=== PATIENT | female | born 1990 | race Caucasian/White ===

== ENCOUNTER 2018-10-21 05:48 | Emergency (ER) | payer OTHER ==
[2018-10-21 05:56] VITALS: BP 121/75; PULSE 71; TEMP 97.7; BMI 35.0
--- NOTE | 2018-10-21 06:03 | PDOC ---
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 Patient states after she was medicated the patient with insulinshe secured the needle on the safety piece. Patient states when she disposed the needle, she stuck her finger. Patient squeezed her finger to express blood immediately and washed it with soap and water. Patient denies any other complaints. Patient's last tetanus: 2017. Patient was offered prophylactic medication which she deferred at this time. Patient states she will do some research prior to making a decision. Blood work was taken in the emergency department. Patient will try either get consent to have blood drawn on her patient. Past History - Past Medical History Allergies/Adverse Reactions: Allergies Allergy/AdvReac Type Severity Reaction Status Date / Time No Known Allergies Allergy Verified 10/21/18 05:55 Home Medications: Ambulatory Orders NK [No Known Home Medication] 10/21/18 - Suicide/Smoking/Psychosocial Hx Smoking History: Never smoked Have you smoked in the past 12 months: No Information on smoking cessation initiated: No Hx Alcohol Use: No Drug/Substance Use Hx: No Review of Systems - Review of Systems Able to Perform ROS?: Yes Comments:: 10/21/18 06:18 CONSTITUTIONAL: Absent: fever, chills, diaphoresis, generalized weakness, malaise, loss of appetite MUSCULOSKELETAL: Absent: myalgia, arthralgia, joint swelling SKIN: Absent: rash, itching, pallor Is the patient limited Austrian proficient: No *Physical Exam - Vital Signs Last Vital Signs Temp Pulse Resp BP Pulse Ox 97.7 F 71 18 121/75 98 10/21/18 05:48 10/21/18 05:48 10/21/18 05:48 10/21/18 05:48 10/21/18 05:48 - Physical Exam Comments: 10/21/18 06:19 GENERAL: Well developed, well nourished. Awake and alert. No acute distress. MUSCULOSKELETAL Normal range of motion at all joints. No bony deformities or tenderness. No CVA tenderness. EXTREMITIES: No cyanosis. No clubbing. No edema. No calf tenderness. SKIN: Warm and dry. Normal capillary refill. No rashes. No jaundice. NEUROLOGICAL: Alert, awake, appropriate. Cranial nerves 2-12 intact. No deficits to light touch and temperature in face, upper extremities and lower extremities. No motor deficits in the in face, upper extremities and lower extremities. Normoreflexic in the upper and lower extremities. Normal speech. Toes are down- going bilaterally. Gait is normal without ataxia. PSYCHIATRIC: Cooperative. Good eye contact. Appropriate mood and affect. Progress Note - Progress Note Progress Note: Patient refuses to take any prophylactic medication. Patient wishes to do her research *DC/Admit/Observation/Transfer Diagnosis at time of Disposition: Needle stick injury of finger Qualifiers: Encounter type: initial encounter Qualified Code(s): S61.239A - Puncture wound without foreign body of unspecified finger without damage to nail, initial encounter; W27.3XXA - Contact with needle (sewing), initial encounter - Discharge Dispostion Disposition: HOME Condition at time of disposition: Fair Decision to Admit order: No - Referrals - Patient Instructions Printed Discharge Instructions: How to Handle Body Fluid Exposure -- Healthcare Worker Additional Instructions: You refused to take any prophylactic medication at this time . It is important that you follow-up with your primary care physician Return to the ER for any concerns - Post Discharge Activity Forms/Work/School Notes: Back to Work
--- NOTE | 2018-10-21 06:13 | PDOC ---
*Physical Exam - Vital Signs Last Vital Signs Temp Pulse Resp BP Pulse Ox 97.7 F 71 18 121/75 98 10/21/18 05:48 10/21/18 05:48 10/21/18 05:48 10/21/18 05:48 10/21/18 05:48 Medical Decision Making - Medical Decision Making 10/21/18 06:13 Pt seen by Midlevel Provider under my direct supervision Pt interviewed and examined Ancillary studies reviewed I agree with plan as outlined by Midlevel Provider *DC/Admit/Observation/Transfer - Discharge Dispostion Condition at time of disposition: Fair - Referrals - Patient Instructions - Post Discharge Activity Forms/Work/School Notes: Back to Work
[2018-10-21] MEDS ORDERED: RALTEGRAVIR POTASSIUM 400 MG TAB PO ONE (06:38)
[2018-10-21] MEDS ORDERED: EMTRICITABINE 200MG/TENOFOVIR 300MG PO ONE (06:38)
[2018-10-21] MEDS ORDERED: HIV POST EXPOSURE PROPHYLAXIS KIT PO ONE (06:41)
[2018-10-21 07:04] LABS: ALK PHOS 102 U/L (45-117); ANION GAP 6 MMOL/L (8-16); BLOOD UREA NITROGEN 23 mg/dL (7-18); CALCIUM 8.9 mg/dL (8.5-10.1); CHLORIDE 105 mmol/L (98-107); CHOLESTEROL 151 mg/dL (50-200); CO2 26 mmol/L (21-32); CREATININE 0.7 mg/dL (0.55-1.3); GAMMA GLUTAMYL TRANSPEPTIDASE 22 U/L (5-85); GLUCOSE,RANDOM 90 mg/dL (74-106); LDH 199 U/L (84-246); PHOSPHOROUS 3.8 mg/dL (2.5-4.9); POTASSIUM 4.1 mmol/L (3.5-5.1); SGOT/AST 19 U/L (15-37); SGPT/ALT 23 U/L (13-61); SODIUM 137 mmol/L (136-145); TOT PROT 7.7 g/dl (6.4-8.2); TRIGLYCERIDES 224 mg/dL (0-150)
[2018-10-21 07:07] LABS: BILIRUBIN,TOTAL 0.3 mg/dL (0.2-1)
[2018-10-22 06:37] LABS: HBsAG SCREEN Negative (Negative)
== END 2018-10-21 06:48 | disposition home or self-care (01) ==
LOC: JER 05:48
DX: Z77.21 Contact with and (suspected) exposure to potentially hazardous body fluids (principal); S61.233A Puncture wound without foreign body of left middle finger without damage to nail, initial encounter; W46.1XXA Contact with contaminated hypodermic needle, initial encounter; Y93.F9 Activity, other caregiving; Y92.230 Patient room in hospital as the place of occurrence of the external cause; Y99.0 Civilian activity done for income or pay
CPT/HCPCS: 36415; 80053; 82465; 82977; 83615; 84100; 84478; 84550; 86317; 86706; 86803; 87340; 87389; 99281-25

== ENCOUNTER 2020-07-07 22:36 | Emergency (ER) | payer OTHER, SELFPAY ==
[2020-07-07 22:44] VITALS: BP 116/71; PULSE 68; TEMP 98.6; BMI 37.3
== END 2020-07-07 23:29 | disposition home or self-care (01) ==
LOC: JER 22:36
DX: Z77.21 Contact with and (suspected) exposure to potentially hazardous body fluids (principal)
CPT/HCPCS: 99283-25